=== PATIENT | male | born 1975 | race Asian ===

== ENCOUNTER → 2018-02-12 | Outpatient (CLI) | payer OTHER ==
[~2018-02-12] MED LIST: ASPIR 8181 MG PO; COREG3.125 MG PO; EFFIENT10 MG PO; GLIPIZIDE 10 MG10 MG PO; LIPITOR 20 MG T20 M1 PO; METFORMIN HCL500 MG PO; NITROGLYCERIN0.4 MG SUBLING; NORCO 5-325 TA1 EAC1 PO; NOVOLOG100 UNIT/1 SUBQ; OMEPRAZOLE40 MG PO; TYLENOL325 MG PO; ZOFRAN ODT4 MG PO
[2018-02-12 11:54] LABS: ABSOLUTE BASOPHILS 0.1 thou/uL (0.0-0.2); ABSOLUTE EOSINOPHILS 0.2 thou/uL (0.0-0.7); ABSOLUTE LYMPHOCYTES 2.4 thou/uL (0.8-5.3); ABSOLUTE MONOCYTES 0.9 thou/uL (0.0-1.2); ABSOLUTE NEUTROPHILS 7.2 thou/uL (1.6-8.1); BASOPHILS 0.9 %; HEMATOCRIT 53.4 % (42.0-52.0); LYMPHOCYTES 22.3 %; MCH 29.2 pg (26.0-34.0); MCHC 33.8 g/dL (28.0-37.0); MCV 86.4 fL (80.0-100.0); MONOCYTES 8.1 %; MPV 10.4 fl. (7.2-11.1); NUCLEATED RBCS 0 /100WBC; PLATELET COUNT* 174 thou/uL (150-400); POLYS 66.7 %; RBC 6.17 mil/uL (4.50-6.00); RDW-CV 13.7 % (10.5-14.5); WBC 10.8 thou/uL (4.0-11.0)
[2018-02-12 12:06] LABS: ALBUMIN 3.7 g/dL (3.4-5.0); ALKALINE PHOSPHATASE 110 U/L (46-116); ANION GAP 5 mmol/L (7-16); BUN 13 mg/dL (7-18); CALCIUM 8.9 mg/dL (8.5-10.1); CHLORIDE 101 mmol/L (98-107); CHOLESTEROL 220 mg/dL (<200); CO2 29 mmol/L (21-32); CREATININE 0.9 mg/dL (0.6-1.3); DIRECT BILIRUBIN 0.3 mg/dL (<0.1-0.3); GLUCOSE 335 mg/dL (70-99); HDL CHOLESTEROL 22 mg/dL (>40); LDL CHOLESTEROL 156 mg/dL (<100); POTASSIUM 4.2 mmol/L (3.5-5.1); SGOT 144 U/L (15-37); SGPT 478 U/L (30-65); SODIUM 135 mmol/L (136-145); TOTAL BILIRUBIN 0.9 mg/dL (<0.1-1.0); TOTAL PROTEIN 8.1 g/dL (6.4-8.2); TRIGLYCERIDE 212 mg/dL (<150); VLDL 42 mg/dL (<40)
[2018-02-12 12:09] LABS: SERUM ASSESSMENT Clear
[2018-02-13 02:08] LABS: GLYCOHEMOGLOBIN (HGB A1C) 9.3 % (4.8-5.6)
== END ==
LOC: M.LAB 11:24
PROVIDERS: Registered Nurse Diabetes Educator
DX: I10 Essential (primary) hypertension (principal); E11.9 Type 2 diabetes mellitus without complications; E78.2 Mixed hyperlipidemia; I21.3 ST elevation (STEMI) myocardial infarction of unspecified site; R53.83 Other fatigue; Z79.899 Other long term (current) drug therapy

== ENCOUNTER → 2018-03-25 | Outpatient (CLI) | payer OTHER | LOC: M.NUC 02-16 12:36 | DX: E11.9 Type 2 diabetes mellitus without complications (principal); K31.84 Gastroparesis; R74.8 Abnormal levels of other serum enzymes; I10 Essential (primary) hypertension; E78.5 Hyperlipidemia, unspecified ==

== ENCOUNTER → 2019-03-10 | Outpatient (CLI) | payer OTHER ==
[2019-03-10 12:43] LABS: ABSOLUTE BASOPHILS 0.1 thou/uL (0.0-0.2); ABSOLUTE EOSINOPHILS 0.5 thou/uL (0.0-0.7); ABSOLUTE LYMPHOCYTES 3.5 thou/uL (0.8-5.3); ABSOLUTE MONOCYTES 0.9 thou/uL (0.0-1.2); ABSOLUTE NEUTROPHILS 7.8 thou/uL (1.6-8.1); EOSINOPHILS 3.6 %; HEMATOCRIT 50.5 % (42.0-52.0); LYMPHOCYTES 27.4 %; MCH 28.7 pg (26.0-34.0); MCHC 33.7 g/dL (28.0-37.0); MCV 85.2 fL (80.0-100.0); MONOCYTES 6.7 %; MPV 9.7 fl. (7.2-11.1); NUCLEATED RBCS 0 /100WBC; PLATELET COUNT* 226 thou/uL (150-400); POLYS 61.3 %; RBC 5.93 mil/uL (4.50-6.00); RDW-CV 13.6 % (10.5-14.5); WBC 12.8 thou/uL (4.0-11.0)
[2019-03-10 12:56] LABS: ALBUMIN 4.4 g/dL (3.4-5.0); ALKALINE PHOSPHATASE 45 U/L (46-116); ANION GAP 8 mmol/L (7-16); BUN 13 mg/dL (7-18); CALCIUM 9.2 mg/dL (8.5-10.1); CHLORIDE 104 mmol/L (98-107); CHOLESTEROL 100 mg/dL (<200); CO2 28 mmol/L (21-32); DIRECT BILIRUBIN 0.2 mg/dL (<0.1-0.3); GLUCOSE 90 mg/dL (70-99); HDL CHOLESTEROL 25 mg/dL (>40); LDL CHOLESTEROL 55 mg/dL (<100); SGOT 22 U/L (15-37); SGPT 42 U/L (30-65); SODIUM 140 mmol/L (136-145); TOTAL BILIRUBIN 0.6 mg/dL (<0.1-1.0); TOTAL PROTEIN 8.5 g/dL (6.4-8.2); TRIGLYCERIDE 100 mg/dL (<150); VLDL 20 mg/dL (<40)
[2019-03-10 12:57] LABS: SERUM ASSESSMENT Clear
[2019-03-11 02:06] LABS: GLYCOHEMOGLOBIN (HGB A1C) 8.9 % (4.8-5.6)
== END ==
LOC: M.LAB 11:57
PROVIDERS: Registered Nurse Diabetes Educator
DX: I10 Essential (primary) hypertension (principal); E78.2 Mixed hyperlipidemia; E11.9 Type 2 diabetes mellitus without complications; E66.3 Overweight; R61 Generalized hyperhidrosis; Z79.899 Other long term (current) drug therapy; Z68.26 Body mass index [BMI] 26.0-26.9, adult

== ENCOUNTER 2019-07-05 21:51 | Inpatient (IN) | payer OTHER ==
[~2019-07-05] VITALS: Ht 162.6 cm; Wt 79.4 kg
[2019-07-05 22:01] VITALS: BP 80/54
[2019-07-05 23:33] LABS: HEMOGLOBIN 15.5 gm/dL (14.0-18.0); MCH 29.4 pg (26.0-34.0); MCHC 34.5 g/dL (28.0-37.0); MCV 85.2 fL (80.0-100.0); MPV 10.2 fl. (7.2-11.1); NUCLEATED RBCS 0 /100WBC; PLATELET COUNT* 105 thou/uL (150-400); RBC 5.28 mil/uL (4.50-6.00); RDW-CV 13.7 % (10.5-14.5); WBC 26.7 thou/uL (4.0-11.0)
[2019-07-05 23:46] LABS: CALCIUM 8.6 mg/dL (8.5-10.1); CREATININE 3.8 mg/dL (0.6-1.3); POTASSIUM 4.5 mmol/L (3.5-5.1)
[2019-07-05 23:51] LABS: ALBUMIN 3.1 g/dL (3.4-5.0); TOTAL BILIRUBIN 1.6 mg/dL (<0.1-1.0); TOTAL PROTEIN 6.9 g/dL (6.4-8.2)
[2019-07-06 01:49] LABS: ABSOLUTE BASOPHILS 0.3 thou/uL (0.0-0.2); ABSOLUTE LYMPHOCYTES 0.3 thou/uL (0.8-5.3); ABSOLUTE MONOCYTES 1.6 thou/uL (0.0-1.2); ABSOLUTE NEUTROPHILS 24.6 thou/uL (1.6-8.1); PLATELET ESTIMATE DECREASED
[2019-07-06 03:06] VITALS: BP 90/58
[2019-07-06 03:21] LABS: INR 1.2; PROTIME 12.6 Seconds (9.20-11.50)
[2019-07-06 11:30] VITALS: BP 98/62
[2019-07-06 13:47] LABS: HEMOGLOBIN 13.7 gm/dL (14.0-18.0); MCH 29.2 pg (26.0-34.0); MCHC 34.2 g/dL (28.0-37.0); MCV 85.4 fL (80.0-100.0); MPV 10.5 fl. (7.2-11.1); RBC 4.69 mil/uL (4.50-6.00); RDW-CV 14.1 % (10.5-14.5); WBC 12.7 thou/uL (4.0-11.0)
[2019-07-06 13:56] LABS: ALBUMIN 2.5 g/dL (3.4-5.0); CALCIUM 7.6 mg/dL (8.5-10.1); MAGNESIUM 1.1 mg/dL (1.8-2.4); PHOSPHORUS* 2.6 mg/dL (2.5-4.9); TOTAL BILIRUBIN 1.7 mg/dL (<0.1-1.0); TOTAL PROTEIN 6.1 g/dL (6.4-8.2)
[2019-07-06 14:03] LABS: CREATININE 2.7 mg/dL (0.6-1.3)
[2019-07-06 16:00] VITALS: BP 84/52
--- NOTE | 2019-07-06 18:51 | NUR ---
PT ARRIVED TO UNIT AT APPROX 0745 VIA BED, REPORT TAKEN LARRY CARDONA RN. PT IS A&O X4, BEDREST FOR POST SURGERY. SURGICAL SITES TO ABDOMEN COVERED IN GAUZE, DRESSING IS CLEAN, DRY, AND INTACT, ANDRES DRAIN DRAINING SEROSANGUINOUS FLUID. PT HYPOTENSIVE, TACHYCARDIC, FEBRILE AT TIMES THROUGHOUT SHIFT, DR SHAHID NOTIFIED. PT WAS GIVEN BOLUS OF NS WIDE OPEN AND TYLENOL, REMAINS AFEBRILE AT THIS TIME. MATA PATENT AND DRAINING MODERATE AMOUNT OF DARK YELLOW URINE, NO BM THIS SHIFT. AT BEDSIDER, HOURLY ROUNDING COMPLETED.
[2019-07-06 20:00] VITALS: BP 97/56
[2019-07-07] VITALS: BP 84/48
[2019-07-07 04:00] VITALS: BP 92/58
[2019-07-07 05:11] LABS: HEMATOCRIT 38.2 % (42.0-52.0); HEMOGLOBIN 13.2 gm/dL (14.0-18.0); MCH 29.5 pg (26.0-34.0); MCHC 34.7 g/dL (28.0-37.0); MCV 85.1 fL (80.0-100.0); MPV 9.9 fl. (7.2-11.1); RBC 4.48 mil/uL (4.50-6.00); RDW-CV 13.7 % (10.5-14.5)
[2019-07-07 05:24] LABS: ALBUMIN 2.4 g/dL (3.4-5.0); CALCIUM 8.1 mg/dL (8.5-10.1); CREATININE 2.1 mg/dL (0.6-1.3); MAGNESIUM 2.1 mg/dL (1.8-2.4); PHOSPHORUS* 2.1 mg/dL (2.5-4.9); POTASSIUM 3.4 mmol/L (3.5-5.1); TOTAL BILIRUBIN 2.2 mg/dL (<0.1-1.0); TOTAL PROTEIN 6.2 g/dL (6.4-8.2)
[2019-07-07 08:00] VITALS: BP 97/60
--- NOTE | 2019-07-07 08:00 | NUR ---
Pt resting in bed, spouse at bedside , appears alert o x 4, denies chest pain, SOB, denies pain at this time , abdomial surgical sites intact with C/D/I guaze dressing, ANDRES drain x 1, luther to DD
[2019-07-07 11:54] VITALS: BP 125/72
--- NOTE | 2019-07-07 12:30 | NUR ---
HT HAD REPORTED INCREASE IN TEMP 103. ASSISTED PT TO CHAIR, HAD DO INCENTIVE SPIROMETER, WITHIN 5 MINUTES , T DECRESAED TO 101.3, PT ENCOURAGED TO TURN COUGH AND DEEP BREATHE
--- NOTE | 2019-07-07 12:48 | EKG ---
[place] [address] ELECTROCARDIOGRAM REPORT Name: AZALIAYADIEL REYES Room: [address] ADM IN M.R.#: [id number] Admission: 07/06/19 Attend Phys: Bianca Horton Discharge: Date of : 77 Report #: [id number] THIS REPORT FOR: //name// [facility] ED Test Date: 2019-07-05 Test Time: 22:05:06 Pat Name: YADIEL VIEYRA Department: Room: [facility] Gender: M Civil Rights Investigator: : 1975 Requested By: Shanta Mittal Order Number: [id number] MD: Omer Edwards Measurements Intervals Metaline Rate: 103 P: 48 SD: 159 QRS: 34 QRSD: 87 T: 70 QT: 343 QTc: 449 Interpretive Statements Sinus tachycardia artifact noted Inferior infarct, old ST elevation, consider early repolarization Lateral leads are also involved Compared to ECG 12/16/2016 06:54:37 Sinus rhythm no longer present ST (T wave) deviation still present Electronically Signed On 07-07-2019 12:48:24 SENIOR LEAD PROJECT MANAGER by Omer Edwards [email or web address] <ELECTRONICALLY SIGNED> By: Omer Edwards MD, FACC 07/07/19 1248 04 04 Omer Edwards MD, [facility] /EPI
--- NOTE | 2019-07-07 14:18 | NUR ---
Pt has been up in chair x 2 hours, seems to brenda well, Reports adeq pain control with po oxy, and iv morphine Amb with hand held assist of one approx 400 feet. pt brenda well
[2019-07-07 15:45] VITALS: BP 104/70
[2019-07-07 20:00] VITALS: BP 109/65
[2019-07-08] VITALS: BP 124/74
[2019-07-08 03:28] VITALS: BP 113/71
[2019-07-08 04:26] LABS: ALBUMIN 2.5 g/dL (3.4-5.0); CALCIUM 8.3 mg/dL (8.5-10.1); CREATININE 1.5 mg/dL (0.6-1.3); POTASSIUM 3.5 mmol/L (3.5-5.1); TOTAL BILIRUBIN 1.8 mg/dL (<0.1-1.0); TOTAL PROTEIN 6.4 g/dL (6.4-8.2)
[2019-07-08 04:34] LABS: HEMATOCRIT 37.8 % (42.0-52.0); HEMOGLOBIN 13.2 gm/dL (14.0-18.0); MCH 29.6 pg (26.0-34.0); MCV 84.6 fL (80.0-100.0); MPV 10.4 fl. (7.2-11.1); RBC 4.46 mil/uL (4.50-6.00); RDW-CV 14.1 % (10.5-14.5); WBC 7.5 thou/uL (4.0-11.0)
[2019-07-08 07:32] VITALS: BP 107/67
[2019-07-08 12:54] VITALS: BP 113/68
--- NOTE | 2019-07-08 12:58 | NUR ---
Pt is A&O. Resides at home with his . Independent. No DME. No hx of HH or SNF. Goal is home. Following.
--- NOTE | 2019-07-08 13:56 | CON ---
[address] [address] CONSULTATION Name: AZALIAYADIEL Room: [address] ADM IN [place].#: [id number] Admission: 07/06/19 Attend Phys: Bianca Horton Discharge: Date of : 77 Report #: [id number] THIS REPORT FOR: //name// CC: VIDAL physician/PCP Neeraj Guajardo NP CARDIOLOGY CONSULTATION HISTORY OF PRESENT ILLNESS: The patient is a 44-year-old male who I was asked to see in the hospital today because of his history of coronary artery disease. The patient initially presented with chest pain back in 2008. He had a coronary stent placed here at [place]. He then presented here in 2015 with recurrent chest pain. He was taking no medications at that time. He was seen by my partner, Dr. Uche Valdez who performed repeat cardiac catheterization in 08/2015 from the right femoral artery. Results showed an ejection fraction of 55% with mild inferior wall hypokinesis. The LAD had 60% proximal stenosis. The circumflex was totally occluded and filled by collaterals. The right coronary artery had a 90% proximal stenosis. Dr. Valdez then placed a stent in the circumflex artery and a stent in the second marginal branch. He has been treated medically since that time. He has not seen Dr. Valdez since that time. He is not very active, but denies recent chest pain, shortness of breath, palpitations or syncope. Yesterday, he complained of pain in his right lower quadrant. He came here to [place] and was found to have evidence of appendicitis. He underwent appendectomy. I was asked to see him because of history of coronary artery disease. PAST MEDICAL HISTORY: He has had no previous surgical procedures. MEDICATIONS: On admission included Lipitor, Effient, glipizide, aspirin, metformin, carvedilol, insulin. ALLERGIES: He has no known drug allergies. FAMILY HISTORY: Positive for heart disease. SOCIAL HISTORY: He is originally from [facility], he moved to when he was 6 years old. He is retired from work in a factory. He smokes a pack of cigarettes a day. Rarely drinks alcohol. REVIEW OF SYSTEMS: He has had no previous history of stroke, asthma, GI bleeding, hepatitis, kidney disease, cancer or chronic skin condition. PHYSICAL EXAMINATION: GENERAL: Revealed a middle-aged East male who appeared in no distress. VITAL SIGNS: He had a blood pressure of only 98/60, pulse is 90, [place] [address] CONSULTATION Name: YADIEL VIEYRA Room: [address] IN [facility].#: [id number] Admission: 07/06/19 Attend Phys: Bainca Horton Discharge: Date of : 77 Report #: [id number] HEENT: He was anicteric. Conjunctivae are pink. Mucous membranes moist. NECK: Veins nondistended. No carotid bruits. CHEST: Clear to auscultation. CARDIOVASCULAR: Regular rate and rhythm. ABDOMEN: Soft, mildly tender. EXTREMITIES: Had no edema. Dorsalis pedis pulse 2+ bilaterally. SKIN: Warm and dry. NEUROLOGIC: Nonfocal. ECG shows sinus tachycardia, evidence of previous inferior infarction. His workup since he has been here, he had no chest x-ray performed. LABORATORY WORK: Sodium 137, potassium 3.4, creatinine is 3.8 on admission, his bilirubin was 2.2, SGPT 125, albumin 2.4. Troponin 0.04. His white blood cell count 26,000, hemoglobin 15.5, platelet count is only 69,000. IMPRESSION AND RECOMMENDATIONS: 1. Coronary artery disease. Previous stent in the circumflex artery. Chronic occlusion of right coronary artery. Since this has now been more than a year since his previous stenting, it is reasonable to discontinue Plavix and Effient and take only aspirin 81 mg a day. I would hold his beta walter because of low blood pressure. 2. Recent appendectomy. 3. Diabetes. 4. Hyperlipidemia. The patient is on Crestor and Zetia. 5. Tobacco abuse. 6. Chronic kidney disease. 7. Thrombocytopenia. Possibly related to heparin. 8. Elevated liver function studies. I would hold his statin drug at this time. <ELECTRONICALLY SIGNED> By: Omer Edwards MD, FACC 07/08/19 1356 1040 [id number] Edwards MD, FACC /nt
--- NOTE | 2019-07-08 13:56 | CON ---
[address] [address] CONSULTATION Name: AZALIAYADIEL REYES Room: [address] ADM IN M.R.#: [id number] Admission: 07/06/19 Attend Phys: Bianca Horton Discharge: Date of : 77 Report #: [id number] THIS REPORT FOR: //name// CC: VIDAL physician/PCP Neeraj Guajardo NP DATE OF SERVICE: 07/06/2019 CARDIOLOGY CONSULTATION HISTORY OF PRESENT ILLNESS: The patient is a 44-year-old male who I was asked to see in the hospital today after he had appendectomy performed. The patient DICTATION ENDS HERE. <ELECTRONICALLY SIGNED> By: Omer Edwards MD, FACC 07/08/19 1356 1029 [id number] Edwards MD, FACC /nt
--- NOTE | 2019-07-08 14:06 | PATH ---
[address] [address] PATHOLOGY RPT PROCEDURE Name: AZALIABERNARD REYES Room: [address] ADM IN M.R.#: [id number] Admission: 07/06/19 Date of : 77 Discharge: Report #: [id number] Path Case #: [id number] LCA Accession Number: [id number] . 01 Material submitted: . appendix - APPENDIX . 01 Clinical history: . APPENDISITIS . 02 Diagnosis: Appendix "appendix", appendectomy: - Acute suppurative appendicitis with acute inflammation extending into the periappendiceal fat with perforation and with microabscess formation. . (SHA:pit; 07/08/2019) QTP 07/08/2019 1222 Local . 02 Electronically signed: . Bill Feliz MD, Pathologist NPI- [id number] . 01 Gross description: . Received in formalin labeled "Bernard Avila, appendix," are two segments of irregular, extensively disrupted appendix measuring 1.8 cm in length by 0.8 cm in diameter and 3.1 cm in length by 0.6 cm in diameter, both displaying a small amount of attached yellow-brown mesoappendix measuring up to 1.4 cm in thickness. Gross photographs are taken. The shorter segment displays two irregular, grossly disrupted margins, with no grossly identifiable jayden; the proximal margin is not grossly identifiable. The appendiceal serosa is roughened and dusky purple-almanzar in appearance. One margin is inked black, and the opposite margin is inked yellow. Serial sectioning through this segment reveals a patent lumen ranging from 0.3 to 0.4 cm in diameter and partially filled with dark brown, friable fecal material. Sectioning through the attached mesoappendix reveals yellow-brown cut surfaces. This segment of appendix is submitted entirely in cassette A1. The longer appendix segment displays a wrinkled to shaggy, pale almanzar to dusky purple-almanzar and hemorrhagic appendiceal serosa. The proximal aspect is irregular and grossly disrupted in appearance, displaying no grossly identifiable jayden; this area is inked black. A disrupted area is noted in the serosa, extending to within 0.6 cm of the proximal aspect; this area is inked yellow. Serial sectioning through this segment reveals a patent lumen ranging from 0.3 to 0.4 cm in diameter and filled with friable, dark brown to hemorrhagic material. Sectioning through the attached mesoappendix reveals yellow-brown to extensively hemorrhagic cut surfaces. The proximal aspect and bisected distal tip of this segment are submitted in cassette A2, and the remaining appendix [place] [address] PATHOLOGY RPT PROCEDURE Name: BERNARD AVILA Room: [address] IN M.R.#: [id number] Admission: 07/06/19 Date of : 77 Discharge: Report #: [id number] Path Case #: [id number] . Also received within the specimen container is a separate irregular fragment of pale almanzar to hemorrhagic soft tissue measuring 2.3 x 0.8 x 0.5 cm in greatest dimensions; this fragment contains no grossly identifiable appendix. Serial sectioning through this fragment reveals partially friable, almanzar-brown to hemorrhagic cut surfaces. This fragment is submitted entirely in cassette A4. (DAC; 07/07/2019) XDC/XDC 07/07/2019 0809 Local . 02 Pathologist provided ICD-10: K35.80 . 02 CPT . 810128 Specimen Comment: A courtesy copy of this report has been sent to [phone] Specimen Comment: Report sent to Performed at: 01 [facility] [address], [place], [place] [address] MD Yassine Malin MD Phone: [phone] Performed at: [facility], [place] [address], [place], [place] [id number] MD Sky Velez MD Phone: [phone]
--- NOTE | 2019-07-08 14:30 | NUR ---
ASSESSMENT COMPLETE. PT ALERT AND ORIENTED X4. PT SHOWER THIS MORNING. AMBULATING IN HALLWAYS. LAP SITES C/D/I. ANDRES DRAIN IN PLACE. PT IS ON ROOM AIR, VSS. DENIES NEED FOR PAIN MEDICATION. TOLERATING CLEAR LIQUID DIET. ACCU CHECK ACHS. SCHEDULED TYLENOL FOR FEVERS, AFEBRILE TODAY. RIGHT HAND IV, SL. IV ZOSYN GIVEN SCHEDULED. SEE ASSESSMENT AND VITALS FOR OTHER DETAILS. CALL LIGHT WITHIN REACH, WILL CONTINUE PLAN OF CARE
[2019-07-08 17:53] VITALS: BP 113/76
--- NOTE | 2019-07-08 19:08 | OP ---
[address] [address] OPERATIVE REPORT Name: YADIEL VIEYRA Room: [address] IN [place].#: [id number] Admission: 07/06/19 Attend Phys: Bianca Horton Discharge: Date of : 77 Report #: [id number] THIS REPORT FOR: //name// CC: Neeraj Maradiagajeremy PaulGuajardo DATE OF SERVICE: 07/06/2019 PREOPERATIVE DIAGNOSIS: Acute appendicitis. POSTOPERATIVE DIAGNOSIS: Acute perforated appendicitis with purulent peritonitis. SURGEON: Dr. Neeraj Dugan. READING PROFESSOR: Shirley May DO INDICATIONS: The patient is a 44-year-old male who presented to the Emergency Department with 2 days of right lower quadrant pain. He was hypotensive in the ER despite 4 liters of crystalloid resuscitation. He had a leukocytosis of [address] abdomen and pelvis revealing acute appendicitis. Of note, the patient has a cardiac history and is on aspirin and effient for cardiac stents. Surgery was indicated. Risks and benefits of the surgery were discussed in detail with the patient and the patient's at bedside. Risks of bleeding, infection, damage to nearby structures, hernia, postoperative complications of DVT, PE, OR and were explained in detail. The patient and his agreed to proceed with the operation. DESCRIPTION OF PROCEDURE: The patient was taken to the operating room theater and placed in the supine position. The patient's left arm was tucked. General anesthesia was induced without complication. Bilateral SCDs were placed and preoperative antibiotics were given. The patient's abdomen was then prepped and draped in the standard sterile fashion. A timeout was performed and all were in agreement. A periumbilical incision was made using an 11 blade scalpel. Subcutaneous fat was dissected with electrocautery until the midline fascia was appreciated. The midline fascia was incised using electrocautery and elevated with Kochers. The abdomen was entered bluntly using a hemostat. A Quentin trocar was then placed, a camera was introduced, and the abdomen was insufflated. No injuries were appreciated upon entry to the abdomen. Once the camera was introduced, a significant amount of purulence and inflammatory mass was seen in the right lower quadrant. Next, a 5 mm port was placed in the suprapubic position and the left lower quadrant under direct visualization. Using blunt graspers, the small bowel was swept to the left upper quadrant. The patient was placed in the Trendelenburg and left side down position. Once the small bowel was moved out of the way, the appendix [place] [address] OPERATIVE REPORT Name: YADIEL VIEYRA Room: [address] IN M.R.#: [id number] Admission: 07/06/19 Attend Phys: Bianca Horton Discharge: Date of : 77 Report #: [id number] was perforated and sitting in an abscess cavity. The appendix was grasped using a blunt grasper and elevated to the anterior abdominal wall. During dissection of the appendix from the abscess cavity, the appendix was torn in several places as it was extremely friable. The appendiceal base was found at the coalescence of the tenia at the cecum. There was approximately 1 cm base that appeared healthy. The mesentery was then taken using a Harmonic scalpel. The base of the appendix had been from the diseased appendix with tissue handling. An Endoloop was introduced. This was a PDS Endoloop. The Endoloop was placed around the base of the appendix and the base of the appendix was grasped with a blunt grasper. The Endoloop was secured on the base of the appendix. This Endoloop was then cut and removed from the abdominal cavity. Next, a second Endoloop was placed on the base of the appendix and this was cut and removed from the abdominal cavity. Both Endoloops appeared intact. Next an endocatch bag was used to remove the appendix from the abdominal cavity. The right lower quadrant and pelvis were suctioned. Next, a drain was introduced into the left lower quadrant trocar and then the fenestrated portion was placed in the right upper quadrant. The trocar was removed. The abdomen was then inspected once more for hemostasis, which was appreciated. The Endoloops were visualized again to be intact at the appendiceal base. Next, the remaining trocars were removed under direct visualization. The two 5 mm trocar sites were closed using 4-0 Monocryl. The ANDRES drain was sutured in with 2-0 nylon and the fascia at the periumbilical site was closed using 0 Vicryl in a fortwa-sg-cpden fashion. The skin over top was closed using 4-0 monocryl. All sites were dressed with Steri-Strips and covered with 4 x 4 gauze. This concluded the procedure. All sponge, needle and instrument counts were correct x 2. COMPLICATIONS: None. FINDINGS: Acute perforated appendicitis with purulent peritonitis. SPECIMENS: Appendix. DRAINS: ANDRES drain in the right lower quadrant. [address] [address] OPERATIVE REPORT Name: YADIEL VIEYRA Room: [address] IN .[place].#: [id number] Admission: 07/06/19 Attend Phys: Bianca Horton Discharge: Date of : 77 Report #: [id number] DISPOSITION: The patient was extubated and taken to the PACU in stable condition. <ELECTRONICALLY SIGNED> By: Neeraj Agarwal DO 07/08/19 1908 1857 37Neeraj Agarwal DO /
[2019-07-08 19:40] VITALS: BP 104/68
[2019-07-09] VITALS: BP 105/66
[2019-07-09 04:00] VITALS: BP 113/71
[2019-07-09 05:16] LABS: HEMATOCRIT 37.5 % (42.0-52.0); HEMOGLOBIN 13.1 gm/dL (14.0-18.0); MCH 29.3 pg (26.0-34.0); MCV 83.6 fL (80.0-100.0); MPV 10.4 fl. (7.2-11.1); RBC 4.49 mil/uL (4.50-6.00); RDW-CV 13.4 % (10.5-14.5)
[2019-07-09 05:40] LABS: ALBUMIN 2.3 g/dL (3.4-5.0); CALCIUM 8.2 mg/dL (8.5-10.1); CREATININE 1.2 mg/dL (0.6-1.3); MAGNESIUM 1.5 mg/dL (1.8-2.4); PHOSPHORUS* 3.1 mg/dL (2.5-4.9); POTASSIUM 3.4 mmol/L (3.5-5.1); TOTAL BILIRUBIN 1.3 mg/dL (<0.1-1.0); TOTAL PROTEIN 6.2 g/dL (6.4-8.2)
--- NOTE | 2019-07-09 05:56 | NUR ---
VSS. SEE MAR. SEE CHARTING. PROGRESSING TOWARDS GOALS. FALL PRECAUTIONS IN PLACE. HOURLY ROUNDING FOR SAFETY.
[2019-07-09 08:00] VITALS: BP 113/75
--- NOTE | 2019-07-09 10:27 | NUR ---
ASSUMED CARE OF PATIENT THIS AM AT 0730. PATIENT IS ALERT AND ORIENTED X 4. HE C/O SURGICAL SITE PAIN THIS AM. PATIENT HAS BEEN UP IN THE CHAIR. TELE SHOWS NSR. SURGICAL SITES INTACT. ANDRES DRAIN IN PLACE. SCANT SEROUS DRAINAGE. PATIENT MEDICATED FOR PAIN X 1 THIS AM. WILL CONTINUE TO MONITOR.
[2019-07-09 12:05] VITALS: BP 116/76
[2019-07-09 16:38] VITALS: BP 104/66
[2019-07-09 19:40] VITALS: BP 108/64
[2019-07-10] VITALS: BP 133/70
[2019-07-10 04:00] VITALS: BP 117/66
--- NOTE | 2019-07-10 07:05 | NUR ---
VSS. SEE MAR. SEE CHARTING.PROGRESSING TOWARDS GOALS. HOURLY ROUNDING FOR SAFETY.
[2019-07-10 08:00] VITALS: BP 130/80
[2019-07-10] MEDS ORDERED: AUGMENTIN 875-1 EACH PO (12:27)
[2019-07-10] MEDS ORDERED: ROXICODONE5 M2 PO (12:31)
[2019-07-10 12:50] VITALS: BP 130/80
[2019-07-10 13:03] VITALS: BP 130/80
--- NOTE | 2019-07-10 13:19 | NUR ---
ASSUMED CARE OF PATIENT THIS AM AT 0730. PATIENT IS ALERT AND ORIENTED. HE SAYS PAIN IS CONTROLLED TODAY. PATIENT IS ANXIOUS TO DISCHARGE TO HOME. DR PATEL IN TO ROUND AND DISCHARGE ORDERS WRITTEN. ANDRES DRAIN PULLED BY SURGERY TEAM. PATIENT GIVEN DISCHARGE AND FOLLOWUP INSTRUCTIONS. PRESCRIPTIONS AND CARENOTES GIVEN. SALINE LOCK AND TELE MONITOR DISCONTINUED. PATIENT DISCHARGED TO HOME WITH BELONGINGS PER W/C. PATIENT MEDICATED FOR C/O PAIN AFTER ANDRES WAS PULLED AND WAS GIVEN PAIN MEDICATION X 1 PRIOR TO DISCHARGE.
== END 2019-07-10 13:20 | disposition home or self-care (01) | DRG 854 ==
LOC: M.ERS 21:51 → M.SUR 21:51 → M.TBA-ER 07-06 02:19 → M.ERS 07-06 02:19 → M.2W 07-06 06:01 → M.TBA-ER 07-06 06:01 → M.2W 07-06 07:21
PROVIDERS: Emergency Medicine; ADMIT Surgery
PROC: 0DTJ4ZZ Resection of Appendix, Percutaneous Endoscopic Approach (ICD-10-PCS; principal; 2019-07-06)
DX: A41.9 Sepsis, unspecified organism (principal); N17.9 Acute kidney failure, unspecified; K35.20 Acute appendicitis with generalized peritonitis, without abscess; E78.5 Hyperlipidemia, unspecified; I25.2 Old myocardial infarction; F17.210 Nicotine dependence, cigarettes, uncomplicated; K59.09 Other constipation; I95.9 Hypotension, unspecified; I25.10 Atherosclerotic heart disease of native coronary artery without angina pectoris; R74.0 Nonspecific elevation of levels of transaminase and lactic acid dehydrogenase [LDH]; N18.9 Chronic kidney disease, unspecified; I12.9 Hypertensive chronic kidney disease with stage 1 through stage 4 chronic kidney disease, or unspecified chronic kidney disease; E11.22 Type 2 diabetes mellitus with diabetic chronic kidney disease; D69.6 Thrombocytopenia, unspecified; E87.6 Hypokalemia; E83.51 Hypocalcemia; E83.39 Other disorders of phosphorus metabolism; E11.649 Type 2 diabetes mellitus with hypoglycemia without coma; Z95.5 Presence of coronary angioplasty implant and graft; Z79.82 Long term (current) use of aspirin; Z79.4 Long term (current) use of insulin; Z83.3 Family history of diabetes mellitus; Z82.49 Family history of ischemic heart disease and other diseases of the circulatory system

== ENCOUNTER → 2020-01-04 | Outpatient (CLI) | payer OTHER ==
[~2020-01-04] MED LIST changes: +AUGMENTIN 875-1 EACH PO; +ROXICODONE5 M2 PO
== END ==
LOC: M.ULTRA 12:21
PROVIDERS: ATTEND Registered Nurse Diabetes Educator
DX: I70.202 Unspecified atherosclerosis of native arteries of extremities, left leg (principal); M79.604 Pain in right leg; M79.605 Pain in left leg

== ENCOUNTER → 2020-05-09 | Outpatient (CLI) | payer OTHER ==
[2020-05-09 11:08] LABS: ABSOLUTE BASOPHILS 0.1 thou/uL (0.0-0.2); ABSOLUTE EOSINOPHILS 0.6 thou/uL (0.0-0.7); ABSOLUTE LYMPHOCYTES 3.1 thou/uL (0.8-5.3); ABSOLUTE NEUTROPHILS 9.1 thou/uL (1.6-8.1); BASOPHILS 0.6 %; EOSINOPHILS 4.3 %; HEMATOCRIT 45.8 % (42.0-52.0); HEMOGLOBIN 15.4 gm/dL (14.0-18.0); LYMPHOCYTES 22.7 %; MCH 28.5 pg (26.0-34.0); MCHC 33.5 g/dL (28.0-37.0); MONOCYTES 6.9 %; NUCLEATED RBCS 0 /100WBC; PLATELET COUNT* 165 thou/uL (150-400); POLYS 65.5 %; RBC 5.39 mil/uL (4.50-6.00); RDW-CV 13.3 % (10.5-14.5); WBC 13.9 thou/uL (4.0-11.0)
[2020-05-09 11:26] LABS: ALBUMIN 3.9 g/dL (3.4-5.0); ALKALINE PHOSPHATASE 47 U/L (46-116); ANION GAP 7 mmol/L (7-16); BUN 14 mg/dL (7-18); CALCIUM 9.5 mg/dL (8.5-10.1); CHLORIDE 104 mmol/L (98-107); CHOLESTEROL 93 mg/dL (<200); CO2 29 mmol/L (21-32); CREATININE 1.2 mg/dL (0.6-1.3); DIRECT BILIRUBIN 0.2 mg/dL (<0.1-0.3); GLUCOSE 146 mg/dL (70-99); HDL CHOLESTEROL 19 mg/dL (>40); LDL CHOLESTEROL 43 mg/dL (<100); POTASSIUM 4.2 mmol/L (3.5-5.1); SGOT 47 U/L (15-37); SGPT 95 U/L (30-65); SODIUM 140 mmol/L (136-145); TC:HDL 4.9 Ratio (Not establshd); TOTAL BILIRUBIN 0.7 mg/dL (<0.1-1.0); TOTAL PROTEIN 8.3 g/dL (6.4-8.2); TRIGLYCERIDE 156 mg/dL (<150); VLDL 31 mg/dL (<40)
[2020-05-09 11:27] LABS: SERUM ASSESSMENT Clear
[2020-05-10 05:07] LABS: GLYCOHEMOGLOBIN (HGB A1C) 7.3 % (4.8-5.6)
== END ==
LOC: M.RAD 09:31
PROVIDERS: ATTEND Registered Nurse Diabetes Educator
DX: M25.852 Other specified joint disorders, left hip (principal); E78.5 Hyperlipidemia, unspecified; E11.65 Type 2 diabetes mellitus with hyperglycemia

== ENCOUNTER 2020-08-22 07:33 | Emergency (ER) | payer OTHER ==
[~2020-08-22] VITALS: Ht 165.1 cm; Wt 72.6 kg
[2020-08-22] MEDS ORDERED: CRESTOR20 MG PO (07:42)
[2020-08-22] MEDS ORDERED: JANUVIA100 MG PO (07:42)
[2020-08-22] MEDS ORDERED: MULTIVITAMINS PO (07:43)
[2020-08-22] MEDS ORDERED: ZETIA10 MG PO (07:43)
[2020-08-22] MEDS ORDERED: TYLENOL325 M1 PO (08:08)
[2020-08-22] MEDS ORDERED: AUGMENTIN 875-1 EACH PO (08:08)
[2020-08-22] MEDS ORDERED: NAPROSYN500 MG PO (08:08)
[2020-08-22 08:20] VITALS: BP 143/94
== END 2020-08-22 08:22 | disposition home or self-care (01) ==
LOC: M.ERS 07:33
DX: H66.91 Otitis media, unspecified, right ear (principal); I10 Essential (primary) hypertension; E78.5 Hyperlipidemia, unspecified; E11.9 Type 2 diabetes mellitus without complications; F17.210 Nicotine dependence, cigarettes, uncomplicated; Z95.5 Presence of coronary angioplasty implant and graft; Z79.4 Long term (current) use of insulin

== ENCOUNTER → 2020-09-26 | Outpatient (CLI) | payer OTHER ==
[~2020-09-26] MED LIST changes: +CRESTOR20 MG PO; +JANUVIA100 MG PO; +MULTIVITAMINS PO; +NAPROSYN500 MG PO; +TYLENOL325 M1 PO; +ZETIA10 MG PO
[2020-09-26 08:56] LABS: ABSOLUTE BASOPHILS 0.1 thou/uL (0.0-0.2); ABSOLUTE EOSINOPHILS 0.4 thou/uL (0.0-0.7); ABSOLUTE MONOCYTES 0.9 thou/uL (0.0-1.2); ABSOLUTE NEUTROPHILS 7.3 thou/uL (1.6-8.1); BASOPHILS 0.7 %; EOSINOPHILS 3.5 %; HEMATOCRIT 48.9 % (42.0-52.0); HEMOGLOBIN 16.6 gm/dL (14.0-18.0); LYMPHOCYTES 25.8 %; MCH 28.4 pg (26.0-34.0); MCV 83.5 fL (80.0-100.0); MONOCYTES 7.6 %; MPV 9.4 fl. (7.2-11.1); NUCLEATED RBCS 0 /100WBC; PLATELET COUNT* 154 thou/uL (150-400); POLYS 62.4 %; RBC 5.85 mil/uL (4.50-6.00); RDW-CV 13.1 % (10.5-14.5); WBC 11.7 thou/uL (4.0-11.0)
[2020-09-26 09:08] LABS: ALBUMIN 3.9 g/dL (3.4-5.0); ALKALINE PHOSPHATASE 68 U/L (46-116); ANION GAP 11 mmol/L (7-16); BUN 18 mg/dL (7-18); CHLORIDE 103 mmol/L (98-107); CHOLESTEROL 114 mg/dL (<200); CO2 23 mmol/L (21-32); CREATININE 1.2 mg/dL (0.6-1.3); GLUCOSE 213 mg/dL (70-99); HDL CHOLESTEROL 21 mg/dL (>40); LDL CHOLESTEROL 57 mg/dL (<100); POTASSIUM 4.3 mmol/L (3.5-5.1); SGOT 48 U/L (15-37); SGPT 108 U/L (30-65); SODIUM 137 mmol/L (136-145); TC:HDL 5.4 Ratio (Not establshd); TOTAL BILIRUBIN 0.7 mg/dL (<0.1-1.0); TOTAL PROTEIN 8.1 g/dL (6.4-8.2); TRIGLYCERIDE 180 mg/dL (<150); VLDL 36 mg/dL (<40)
[2020-09-26 09:09] LABS: SERUM ASSESSMENT Clear
[2020-09-26 22:06] LABS: GLYCOHEMOGLOBIN (HGB A1C) 10.9 % (4.8-5.6)
== END ==
LOC: M.LAB 08:38
PROVIDERS: ATTEND Registered Nurse Diabetes Educator
DX: E11.65 Type 2 diabetes mellitus with hyperglycemia (principal); R53.83 Other fatigue

== ENCOUNTER → 2020-11-13 | Outpatient (CLI) | payer OTHER ==
[~2020-11-13] MED LIST changes: +ADULT ASPIRIN R81 MG PO; +INSULIN PEN NE1 EAC1 SUBQ; +NITROSTAT0.4 M1 SUBLING; +TRESIBA FL100 UNIT/1 SUBQ
--- NOTE | 2020-11-13 13:57 | CARDNUC ---
[place] [address] CARDIAC NUCLEAR IMAGING REPORT Name: YADIEL VIEYRA Room: [facility]#: [id number] Admission: 11/13/20 Attend Phys: Faye Kahn Discharge: Date of : 77 Date of Service: 11/13/20 1356 Report #: [id number] THIS REPORT FOR: cc: Lianne Guajardo Tammy RNP Liston, Michael J. MD [facility] ~ APPROVED REPORT Study performed: 11/13/2020 09:07:40 Exam: Nuclear Stress Test Indication: BARNES, s/p [place]/PCI. Patient Location: Out-Patient Stress Tech: Joy Heath Stress Nurse: Fatimah Simon R.N. NM Tech:UMESH Bryan Ht: 5 ft 5 in Wt: 165 lbs BSA: 1.82 m2 BMI: 27.45 Medical History Medical History: BARNES, CAD s/p [place], CAD s/p stent, Diabetic Insulin, HTN, Hyperlipidemia,Left LE claudication, current smoke-one pack cigarettes daily. Medications: ASA 81 MG, Carvedilol, Zetia, NTG, Rosuvastatin. Allergies: Lisinopril, Trulicity. Cardiac Risk Factors: Current Smoker, Diabetes (insulin), FHX of CAD, HTN, Hyperlipidemia, SOB. Previous Cardiac Procedures: Myocardial infarction, PCI. Pretest Chest Pain Characteristics: No chest pain Exercise History: Physically active Physical Disabilities: None noted initially, patient failed treadmill due to LE pain and fatigue. Meds Held (24 hrs): Carvedilol, NTG. Stress Test Details Stress Test: Pharmacologic stress testing performed using 0.4 mg of regadenoson per 5 mL given IV over 10 seconds. Reason for pharmacologic stress test: None noted initially, patient failed treadmill due to LE pain and fatigue.. Reversal agent Aminophyline 60 mg, given intraven[place] [address] CARDIAC NUCLEAR IMAGING REPORT Name: YADIEL VIEYRA Room: [facility]#: [id number] Admission: 11/13/20 Attend Phys: Faye Kahn Discharge: Date of : 77 Date of Service: 11/13/20 1356 Report #: [id number] Resting HR: 93 bpm Max Heart Rate (APMHR): 176 bpm Max HR Achieved: 133 bpm Target HR (85% APMHR): 149 bpm % of APMHR: 75 Recovery HR: 110 bpm BP Resting BP: 148/75 mmHg Max BP: 96/70 mmHg ECG Resting ECG: Sinus Rhythm Stress ECG: Sinus Tachycardia ST Change: None Arrhythmia: None Recovery ECG: Sinus Rhythm Recovery ST Change: None Recovery Arrhythmia: None Clinical Reason for Termination: Completed protocol Stress Symptoms: Dyspnea, leg pain, leg fatigue. Exercise duration: 00 min 00 sec Exercise capacity: 1.00 METs The patient exhibited poor exercise tolerance on the standard Koko protocol and was therefore transition to Lexiscan protocol. The patient tolerated Lexiscan protocol without significant cardiac symptoms. Nurse Comments A 45 year old male presented for a treadmill nuclear stress test. Patient unable to complete test upon reaching stage 3. He was falling back on treadmill, c/o leg pain and unable to keep up. Test changed to sitting Lexiscan. Test tolerated. Recovery unremarkable with continued asymptomatic tachycardia. 60 ml IV caffeine administered r/t continued tachycardia, somewhat effective. Patient stated he felt good when escorted to Nuclear Medicine for imaging. Stress ECG Conclusion The baseline twelve-lead EKG shows sinus rhythm without significant ST segment or T wave abnormality. EKGs obtained during and post Lexiscan infusion shows sinus rhythm and sinus tachycardia with no significant ST segment or T wave changes when compared to baseline. There were no stress-induced arrhythmias. NM EXAM: Myocardial Perfusion REST/[place] [address] CARDIAC NUCLEAR IMAGING REPORT Name: AZALIAYADIEL REYES Room: [facility] ZULY Mendoza#: [id number] Admission: 11/13/20 Attend Phys: Faye Kahn Discharge: Date of : 77 Date of Service: 11/13/20 1356 Report #: [id number] Imaging Protocol: Rest Tc-99m/Stress Tc-99m 1 day Resting Data Rest SPECT myocardial perfusion imaging was performed in supine position 30 minutes following the intravenous injection of 10.8 mCi of Tc-99m Sestamibi. Time of rest injection: 754 Date: 11/13/2020 The images were gated to evaluate regional wall motion and calculate left ventricular ejection fraction. Administration Route: IV Administration Site: Right Hand Pharmacologic Stress Pharmacologic stress test was performed by injecting Regadenoson 0.4 mg IV push followed by the intravenous injection of 32.0 mCi of Tc-99m Sestamibi. Time of stress injection: 929 Date: 11/13/2020 Administration Route: IV Administration Site: Right Hand Gated Stress SPECT was performed 40 minutes after stress injection. The images were gated to evaluate regional wall motion and calculate left ventricular ejection fraction. Prone imaging was performed. Study Quality Study: Good Artifact: No artifact Study Data At rest, the left ventricular ejection fraction was 59%.. Post stress, the left ventricular ejection was 59%.. TID = 1.00. Perfusion Perfusion images obtained at rest and post Lexiscan stress show a moderate to large sized severe intensity fixed defect involving the basal to mid inferolateral wall. No reversible defects are identified. Wall Motion Gated studies show probable preserved LV systolic function with an area of akinesis involving the basal inferolateral wall. Nuclear Conclusion ECG Findings: [place] [address] CARDIAC NUCLEAR IMAGING REPORT Name: YADIEL VIEYRA Room: SOLOMON Mendoza#: [id number] Admission: 11/13/20 Attend Phys: Faye Kahn Discharge: Date of : 77 Date of Service: 11/13/20 1356 Report #: [id number] Clinical Findings: negative for ischemia Nuclear Findings: negative for ischemia Exercise Capacity: abnormal Left Ventricular Function: Preserved Perfusion images show a fixed defect suggestive of prior infarct of the basal inferolateral wall. No reversible defects were identified. Overall LV systolic function was fairly well-preserved. This is not a high risk study. <Conclusion> The baseline twelve-lead EKG shows sinus rhythm without significant ST segment or T wave abnormality. EKGs obtained during and post Lexiscan infusion shows sinus rhythm and sinus tachycardia with no significant ST segment or T wave changes when compared to baseline. There were no stress-induced arrhythmias. <ELECTRONICALLY SIGNED> By: Juventino Jacobo MD, FACC 11/13/20 1356 1356 1356 Juventino Jacobo MD, FACC /INF
== END ==
LOC: M.NUC 11-08 11:11
PROVIDERS: ATTEND Internal Medicine
DX: I25.10 Atherosclerotic heart disease of native coronary artery without angina pectoris (principal); I21.3 ST elevation (STEMI) myocardial infarction of unspecified site; E11.65 Type 2 diabetes mellitus with hyperglycemia

== ENCOUNTER → 2020-12-05 | Outpatient (CLI) | payer OTHER ==
[~2020-12-05] VITALS: Ht 165.1 cm; Wt 72.6 kg
[2020-12-05 07:13] LABS: CREATININE 1.3 mg/dL (0.6-1.3)
[2020-12-05 08:22] VITALS: BP 122/78
== END ==
LOC: M.CT 11-29 08:25 → M.LAB 06:52 → M.CT 08:00
PROVIDERS: ATTEND Internal Medicine
DX: Z01.818 Encounter for other preprocedural examination (principal); I70.203 Unspecified atherosclerosis of native arteries of extremities, bilateral legs; E11.51 Type 2 diabetes mellitus with diabetic peripheral angiopathy without gangrene; K57.30 Diverticulosis of large intestine without perforation or abscess without bleeding; I70.8 Atherosclerosis of other arteries; I25.10 Atherosclerotic heart disease of native coronary artery without angina pectoris; I10 Essential (primary) hypertension; E11.65 Type 2 diabetes mellitus with hyperglycemia; I25.2 Old myocardial infarction; E78.2 Mixed hyperlipidemia; F17.210 Nicotine dependence, cigarettes, uncomplicated; Z79.899 Other long term (current) drug therapy

== ENCOUNTER → 2020-12-07 | Outpatient (CLI) | payer OTHER ==
[~2020-12-07] VITALS: Ht 165.1 cm; Wt 72.6 kg
[2020-12-07 10:38] LABS: HEMATOCRIT 46.5 % (42.0-52.0); HEMOGLOBIN 16.1 gm/dL (14.0-18.0); MCHC 34.7 g/dL (28.0-37.0); MCV 83.7 fL (80.0-100.0); MPV 10.2 fl. (7.2-11.1); RBC 5.55 mil/uL (4.50-6.00); RDW-CV 14.2 % (10.5-14.5); WBC 11.2 thou/uL (4.0-11.0)
[2020-12-07 10:40] VITALS: BP 146/91
[2020-12-07 10:46] LABS: CALCIUM 8.8 mg/dL (8.5-10.1)
[2020-12-07 10:47] LABS: POTASSIUM 4.9 mmol/L (3.5-5.1)
[2020-12-07 10:51] LABS: APTT 30.5 Seconds (25.0-31.3); INR 1.1
[2020-12-07 11:16] VITALS: BP 131/86
[2020-12-07 13:03] VITALS: BP 137/87
[2020-12-07 13:30] VITALS: BP 136/86
[2020-12-07 13:45] VITALS: BP 134/84
[2020-12-07 14:17] VITALS: BP 125/76
== END | disposition home or self-care (01) ==
LOC: M.INT 09:47
PROVIDERS: ATTEND Radiology Diagnostic Radiology
DX: I70.212 Atherosclerosis of native arteries of extremities with intermittent claudication, left leg (principal); M79.605 Pain in left leg; I10 Essential (primary) hypertension; I25.10 Atherosclerotic heart disease of native coronary artery without angina pectoris; E78.5 Hyperlipidemia, unspecified; E11.9 Type 2 diabetes mellitus without complications; I25.2 Old myocardial infarction; F17.210 Nicotine dependence, cigarettes, uncomplicated; Z98.890 Other specified postprocedural states; Z79.899 Other long term (current) drug therapy; Z90.49 Acquired absence of other specified parts of digestive tract

== ENCOUNTER → 2021-05-17 | Outpatient (CLI) | payer OTHER ==
[2021-05-17 10:50] LABS: ALBUMIN 3.9 g/dL (3.4-5.0); ALKALINE PHOSPHATASE 65 U/L (46-116); ANION GAP 9 mmol/L (7-16); BUN 13 mg/dL (7-18); CALCIUM 9.3 mg/dL (8.5-10.1); CHLORIDE 103 mmol/L (98-107); CHOLESTEROL 206 mg/dL (<200); CO2 29 mmol/L (21-32); CREATININE 1.2 mg/dL (0.6-1.3); DIRECT BILIRUBIN 0.1 mg/dL (<0.1-0.3); GLUCOSE 119 mg/dL (70-99); HDL CHOLESTEROL 29 mg/dL (>40); LDL CHOLESTEROL 143 mg/dL (<100); POTASSIUM 4.4 mmol/L (3.5-5.1); SGOT 19 U/L (15-37); SGPT 35 U/L (30-65); SODIUM 141 mmol/L (136-145); TC:HDL 7.1 Ratio (Not establshd); TOTAL BILIRUBIN 0.5 mg/dL (<0.1-1.0); TOTAL PROTEIN 8.5 g/dL (6.4-8.2); TRIGLYCERIDE 172 mg/dL (<150); VLDL 34 mg/dL (<40)
[2021-05-17 10:56] LABS: SERUM ASSESSMENT Clear
[2021-05-17 11:01] LABS: ABSOLUTE BASOPHILS 0.1 thou/uL (0.0-0.2); ABSOLUTE EOSINOPHILS 0.4 thou/uL (0.0-0.7); ABSOLUTE LYMPHOCYTES 2.7 thou/uL (0.8-5.3); ABSOLUTE MONOCYTES 0.7 thou/uL (0.0-1.2); ABSOLUTE NEUTROPHILS 7.8 thou/uL (1.6-8.1); BASOPHILS 0.7 %; EOSINOPHILS 3.7 %; HEMATOCRIT 50.6 % (42.0-52.0); HEMOGLOBIN 17.1 gm/dL (14.0-18.0); LYMPHOCYTES 23.1 %; MCH 28.9 pg (26.0-34.0); MCHC 33.7 g/dL (28.0-37.0); MCV 85.6 fL (80.0-100.0); MONOCYTES 6.1 %; MPV 9.4 fl. (7.2-11.1); NUCLEATED RBCS 0 /100WBC; PLATELET COUNT* 195 thou/uL (150-400); POLYS 66.4 %; RBC 5.92 mil/uL (4.50-6.00); RDW-CV 13.4 % (10.5-14.5); WBC 11.7 thou/uL (4.0-11.0)
== END ==
LOC: M.LAB 10:16
PROVIDERS: ATTEND Registered Nurse Diabetes Educator
DX: E11.65 Type 2 diabetes mellitus with hyperglycemia (principal); I25.10 Atherosclerotic heart disease of native coronary artery without angina pectoris; I10 Essential (primary) hypertension; E78.5 Hyperlipidemia, unspecified; Z79.899 Other long term (current) drug therapy